=== PATIENT | male | born 1945 | race Caucasian/White ===

== ENCOUNTER 2016-07-29 04:17 | Emergency (ER) | payer MEDICARE, OTHER ==
[~2016-07-29] VITALS: Ht 180.3 cm; Wt 105.0 kg
[2016-07-29 04:19] VITALS: BP 159/89; PULSE 75; RESP 16; TEMP 97.7; O2SAT 97
[2016-07-29] MEDS ORDERED: SIMV5TAB3 PO (04:40)
[2016-07-29] MEDS ORDERED: MORP1TAB25 PO (04:40)
[2016-07-29] MEDS ORDERED: HYDR12.57 PO (04:40)
[2016-07-29] MEDS ORDERED: MORP1TAB24 PO (04:40)
[2016-07-29] MEDS ORDERED: HYDROmorphone HCL PF 1 MG/ML VIAL IM ONE (04:45)
--- NOTE | 2016-07-29 04:49 | PD ---
HPI Chief Complaint: Medication Refill Request Time Seen by Provider: 04:46 Travel History International Travel<30 days: No Contact w/Intl Traveler<30days: No Traveled to known affect area: No History of Present Illness HPI 70-year-old white male presents to emergency Department with complaints of joint pain. He states that he is out of his morphine. He states that he had gotten his pillbox contaminated with water and it dissolves last few days him morphine tablets. He states that he has a refill coming in from [facility] tomorrow. He states that he's been out of his medications now for 2 days. He understands that he cannot get a refill but is requesting something for pain today. He has no other complaints. [facility] Past Medical History Narrative Medical Hypertension, COPD, chronic joint pain, hypercholesterolemia Cardiovascular Problems: Yes (HTN) High Cholesterol: Yes Hypertension: Yes Respiratory: Yes (ASTHMA, COPD) Tetanus Vaccination: < 5 Years Past Surgical History Eye Surgery: Yes Tonsillectomy: Yes Social History Alcohol Use: Yes (occasionally) Tobacco Use: Yes Substance Use: No Allergies-Medications (Allergen,Severity, Reaction): Coded Allergies: No Known Allergies (Unverified , 07/29/16) Reported Meds & Prescriptions Reported Meds & Active Scripts Active Reported Hydrochlorothiazide 12.5 Mg Cap 12.5 Mg PO DAILY Simvastatin 5 Mg Tab 5 Mg PO DAILY Morphine ER (Morphine Sulfate) 15 Mg Tab 15 Mg PO DAILY Morphine ER (Morphine Sulfate) 30 Mg Tab 30 Mg PO BID Review of Systems Except as stated in HPI: all other systems reviewed are Neg Physical Exam Narrative GENERAL: This is a well-nourished, well-developed patient, in no apparent distress. SKIN: No rashes, ecchymoses or lesions. Warm and dry. HEAD: Atraumatic. Normocephalic. EYES: PERRL, EOMI, no discharge or injection. No scleral icterus. EARS: Clear NOSE: Nasal turbinates appear normal. THROAT: Mucosa pink and moist. Airway patent. NECK: Trachea midline. supple, moves head freely. LUNGS: Clear to auscultation. CV: Regular in rhythm. ABDOMEN: Soft nontender. EXT: No clubbing cyanosis or edema. Data Data Last Documented VS Vital Signs Date Time Temp Pulse Resp B/P Pulse Ox O2 Delivery O2 Flow Rate FiO2 07/29/16 04:19 97.7 75 16 159/89 97 Orders Hydromorphone Pf Inj (Dilaudid Pf Inj) (07/29/16 04:45) MDM Medical Decision Making Medical Screen Exam Complete: Yes Emergency Medical Condition: Yes Medical Record Reviewed: Yes Differential Diagnosis MDM: High Differential diagnoses: Fracture, sprain, strain, HNP, nerve or vascular injury , epidural abscess, pilonidal cyst Narrative Course This is acute exacerbation of chronic pain due to contaminated pain medication. I've informed the patient we cannot refill medications to the ER. He voices understanding. He is given Dilaudid 1 mg IM here in the ER and discharged in stable condition. This is acute exacerbation of chronic back pain Diagnosis Primary Impression: Acute exacerbation of chronic low back pain Patient Instructions: General Instructions, Narcotic given in the ED Additional Instructions: Rest. [facility] Return to the ER for emergencies. Med/Other Pt SpecificInfo: No Meds Exist/No RX given Disposition: 01 DISCHARGE HOME Condition: Stable Osvaldo Dalton Jul 29, 2016 04:49
== END 2016-07-29 05:35 | disposition home or self-care (01) ==
LOC: NEPB 04:17
DX: M54.5 Low back pain (principal); G89.29 Other chronic pain; J44.9 Chronic obstructive pulmonary disease, unspecified; E78.00 Pure hypercholesterolemia, unspecified; I10 Essential (primary) hypertension; J45.909 Unspecified asthma, uncomplicated; Z72.0 Tobacco use
CPT/HCPCS: 96372; 99281; J1170